=== PATIENT | male | born 1965 ===

== ENCOUNTER 2025-05-11 10:45 | Inpatient (IN) | payer OTHER ==
[~2025-05-11] VITALS: Ht 172.7 cm; Wt 97.1 kg
[2025-05-11] MEDS ORDERED: AVALIDE 300-121 EACH PO (13:57)
[2025-05-11] MEDS ORDERED: ATORVASTATIN CA20 MG PO (13:57)
[2025-05-11] MEDS ORDERED: VITAMIN B-121000 MC4 PO (13:58)
[2025-05-18] MEDS ORDERED: CEFTRIAXONE SODIUM 2,000 MG VIAL ONE (12:58)
[2025-05-18] MEDS ORDERED: METRONIDAZOLE/SODIUM CHLORIDE 500 MG/100 ML PIGGYBACK IV ONE (12:58)
[2025-05-18] MEDS ORDERED: BUPIVACAINE HCL/MPF 0.5% 30ML VIAL ONE (13:19)
[2025-05-18] MEDS ORDERED: LIDOCAINE HCL 1%/EPINEPHRINE 20ML VIAL IJ ONE (13:19)
[2025-05-18] MEDS ORDERED: SUGAMMADEX SODIUM 200 MG/2 ML VIAL IV ONE (16:22)
[2025-05-18] MEDS ORDERED: MORPHINE SULFATE 4 MG/ML VIAL IV ONE (20:00)
[2025-05-18] MEDS ORDERED: ONDANSETRON HCL 2 MG/ML VIAL IV PRN (21:15)
[2025-05-18] MEDS ORDERED: RINGERS SOLUTION,LACTATED 1,000 ML IV SCH (21:15)
[2025-05-18] MEDS ORDERED: MORPHINE SULFATE 4 MG/ML VIAL IV PRN (21:15)
[2025-05-18] MEDS ORDERED: ENALAPRILAT DIHYDRATE 1.25 MG/ML VIAL IV ONE ×3 (22:40→22:45)
[2025-05-18] MEDS ORDERED: ENALAPRILAT DIHYDRATE 1.25 MG/ML VIAL IV PRN (23:00)
[2025-05-18 23:13] LABS: BASO % 0.1 % (0.1-1.2); EOS # 0.00 (0.04-0.54); EOS % 0.0 % (0.7-7.0); LYMPH # 0.70 (1.18-3.74); LYMPH % 4.4 % (19.3-53.1); MEAN PLATELET VOLUME 9.10 fl (9.4-12.4); MONO # 1.08 (0.24-0.82); MONO % 6.8 % (4.7-12.5); NEUT # 14.09 (1.56-6.13); NEUT % 88.3 % (34.0-71.1); RED CELL DISTRIBUTION WIDTH 12.5 % (11.6-14.4)
[2025-05-19] MEDS ORDERED: METOCLOPRAMIDE HCL 5 MG/ML VIAL ONE (00:18)
[2025-05-19] MEDS ORDERED: ACETAMINOPHEN 500 MG GEL..CAP PO ONE (00:19)
[2025-05-19] MEDS ORDERED: GABAPENTIN 300 MG CAPSULE PO ONE (00:19)
[2025-05-19] MEDS ORDERED: GABAPENTIN 300 MG CAPSULE PO SCH (01:00)
[2025-05-19] MEDS ORDERED: METOCLOPRAMIDE HCL 5 MG/ML VIAL IV SCH (01:00)
[2025-05-19] MEDS ORDERED: ACETAMINOPHEN 500 MG GEL..CAP PO SCH (01:00)
[2025-05-19] MEDS ORDERED: MORPHINE SULFATE 4 MG/ML VIAL IV ONE (02:00)
[2025-05-19] MEDS ORDERED: ENALAPRILAT DIHYDRATE 1.25 MG/ML VIAL IV ONE (03:45)
[2025-05-19] MEDS ORDERED: ENALAPRILAT DIHYDRATE 1.25 MG/ML VIAL IV PRN (05:45)
[2025-05-19 05:52] VITALS: BP 170/98; O2SAT 94
[2025-05-19 06:37] LABS: BASO % 0.1 % (0.1-1.2); EOS # 0.00 (0.04-0.54); EOS % 0.0 % (0.7-7.0); LYMPH # 0.74 (1.18-3.74); LYMPH % 5.0 % (19.3-53.1); MEAN PLATELET VOLUME 8.90 fl (9.4-12.4); MONO # 0.75 (0.24-0.82); MONO % 5.0 % (4.7-12.5); NEUT # 13.36 (1.56-6.13); NEUT % 89.6 % (34.0-71.1); RED CELL DISTRIBUTION WIDTH 12.9 % (11.6-14.4)
[2025-05-19 07:11] LABS: BUN CREA RATIO 16.0 (7.0-25.0); CREATININE SERUM 0.94 mg/dL (0.70-1.30); GFR 81.59; GLUCOSE FASTING 152.0 mg/dL (65-100); OSMOLALITY SERUM 281.0 MOSM/KG (275-295)
[2025-05-19] MEDS ORDERED: MORPHINE SULFATE 4 MG/ML CARTRIDGE IV PRN (07:45)
[2025-05-19 08:15] VITALS: BP 151/75; O2SAT 96
[2025-05-19] MEDS ORDERED: IRBESARTAN 300 MG TABLET PO SCH (09:00)
[2025-05-19] MEDS ORDERED: HYOSCYAMINE SULFATE 0.125 MG TAB.SUBL SL SCH (09:00)
[2025-05-19] MEDS ORDERED: FAMOTIDINE/PF 20 MG/2 ML VIAL IV SCH (09:00)
[2025-05-19] MEDS ORDERED: HYDROCHLOROTHIAZIDE 12.5 MG CAPSULE PO SCH (09:00)
[2025-05-19 09:53] LABS: ABG PH 7.455 (7.35-7.45)
[2025-05-19 09:54] LABS: ABG PO2 83.0 mmHg (80-100); BICARBONATE 24.9 mmol/l (23-25); o2 21 %
[2025-05-19] MEDS ORDERED: ATORVASTATIN CALCIUM 20 MG TABLET PO SCH (17:00)
[2025-05-19 17:35] VITALS: BP 138/71; O2SAT 95
[2025-05-20 01:04] VITALS: BP 172/74; O2SAT 100
[2025-05-20 06:17] LABS: BASO % 0.2 % (0.1-1.2); EOS # 0.15 (0.04-0.54); EOS % 1.4 % (0.7-7.0); LYMPH # 1.95 (1.18-3.74); LYMPH % 17.6 % (19.3-53.1); MEAN PLATELET VOLUME 9.10 fl (9.4-12.4); MONO # 1.13 (0.24-0.82); MONO % 10.2 % (4.7-12.5); NEUT # 7.81 (1.56-6.13); NEUT % 70.3 % (34.0-71.1); RED CELL DISTRIBUTION WIDTH 13.2 % (11.6-14.4)
[2025-05-20 06:50] LABS: BUN CREA RATIO 12.0 (7.0-25.0); CREATININE SERUM 0.95 mg/dL (0.70-1.30); GFR 80.6; GLUCOSE FASTING 96.0 mg/dL (65-100); OSMOLALITY SERUM 277.0 MOSM/KG (275-295)
[2025-05-20 08:16] VITALS: BP 136/78; O2SAT 96
== END 2025-05-20 14:11 | disposition home health service (06) | DRG 330 ==
LOC: SURH 05-18 10:15 → O/R 05-18 11:15 → SURG 05-19 05:05
PROVIDERS: Internal Medicine Geriatric Medicine; ADMIT Colon & Rectal Surgery; ATTEND Colon & Rectal Surgery
PROC: 0DBP4ZZ Excision of Rectum, Percutaneous Endoscopic Approach (ICD-10-PCS; 2025-05-18)
PROC: 0DJD8ZZ Inspection of Lower Intestinal Tract, Via Natural or Artificial Opening Endoscopic (ICD-10-PCS; 2025-05-18)
PROC: 0DTN4ZZ Resection of Sigmoid Colon, Percutaneous Endoscopic Approach (ICD-10-PCS; principal; 2025-05-18 10:15)
DX: K57.20 Diverticulitis of large intestine with perforation and abscess without bleeding (principal); K92.1 Melena; R59.0 Localized enlarged lymph nodes; K66.0 Peritoneal adhesions (postprocedural) (postinfection); I10 Essential (primary) hypertension; E03.9 Hypothyroidism, unspecified; G47.30 Sleep apnea, unspecified